=== PATIENT | female | born 1960 | race Caucasian/White ===

== ENCOUNTER 2021-06-15 17:39 | Inpatient (IN) | payer OTHER ==
[~2021-06-15] VITALS: Ht 160 cm; Wt 138.9 kg
[2021-06-15 18:56] LABS: BASO # 0.1 x10^3/uL (0.0-0.2); BASO % 1 % (0-3); CALCIUM 8.8 mg/dL (8.5-10.1); CREATININE 1.5 mg/dL (0.6-1.0); EOS % 0 % (0-3); GFR 35.4; HEMATOCRIT 37.6 % (36.0-47.0); HEMOGLOBIN 11.8 g/dL (12.0-15.5); LYMPH # 0.2 x10^3/uL (1.0-4.8); LYMPH % 1 % (24-48); MEAN CORPUSCULAR HEMOGLOBIN 29 pg (25-35); MEAN CORPUSCULAR HGB CONC 32 g/dL (31-37); MEAN CORPUSCULAR VOLUME 92 fL (79-100); MONO # 0.4 x10^3/uL (0.0-1.1); MONO % 2 % (0-9); NEUT # 16.5 x10^3uL (1.8-7.7); NEUT % 96 % (31-73); PLATELET COUNT 305 x10^3/uL (140-400); RED BLOOD COUNT 4.11 x10^6/uL (3.50-5.40); RED CELL DISTRIBUTION WIDTH 20.5 % (11.5-14.5); WHITE BLOOD COUNT 17.2 x10^3/uL (4.0-11.0)
[2021-06-15 19:11] LABS: ALBUMIN 2.1 g/dL (3.4-5.0); ALBUMIN/GLOBULIN RATIO 0.5 (1.0-1.7); C REACTIVE PROTEIN 32.6 mg/L (0-3.3); PHOSPHORUS 3.6 mg/dL (2.6-4.7); TOTAL BILIRUBIN 1.3 mg/dL (0.2-1.0); TOTAL PROTEIN 6.7 g/dL (6.4-8.2)
--- NOTE | 2021-06-15 19:23 | RAD ---
Exam: Right and left tibia and fibula 2 views INDICATION: Infection TECHNIQUE: Right left tibia and fibula 2 views Comparisons: None FINDINGS: Right: Bone mineralization is normal. No acute or healed fractures. Joint spaces are well-maintained. Diffus e soft tissue edema and reticulation noted. Left: Bone mineralization is normal. No acute or healed fractures. Joint spaces are well-maintained. Diffus e soft tissue edema and reticulation noted. IMPRESSION: Diffuse soft tissue abnormality without underlying osseous abnormality identified. Electronically signed by: Anand Benjamin MD (06/15/2021 7:20 PM) BENNIE
--- NOTE | 2021-06-15 19:43 | PHYS DOC ---
General Adult EDM: Chief Complaint: CELLULITIS HPI: HPI: Patient is a 60-year-old female coming in from home for maggots on both of her legs. Patient states she first noticed 1 on her leg 3 days ago and is states they have had some fruit flies flying around her house. Has noticed more over the recent days. Not will see her primary care provider because they are out of town. Patient states she has chills but she has chills frequently and is always cold. Denies any known fevers. Patient has a history of lymphedema but has not been getting wound care, has been caring for her wounds at home. Has noticed some small areas of ulceration recently with some weeping. Review of Systems: Review of Systems: All other systems within normal limits except for as noted in the HPI Current Medications: Current Meds: Current Medications Medications (Trade) Dose Ordered Sig/Carley Start Time Stop Time Status Last Admin Dose Admin Acetaminophen (Tylenol) 650 mg PRN Q4HRS PRN 06/15/21 19:45 06/16/21 19:44 UNV Fentanyl Citrate (Fentanyl 2ml Vial) 50 mcg PRN Q1HR PRN 06/15/21 19:45 06/16/21 19:44 UNV Ondansetron HCl (Zofran) 4 mg PRN Q4HRS PRN 06/15/21 19:45 06/16/21 19:44 UNV Sodium Chloride 1,000 ml @ 75 mls/hr [id number] 06/15/21 19:45 06/16/21 19:44 UNV Vancomycin HCl 2 gm/Sodium Chloride 500 ml @ 250 mls/hr 1X ONCE 06/15/21 19:45 06/15/21 21:44 Allergies: Allergies: Allergies Coded Allergies Type Severity Reaction Last Updated Verified Penicillins Allergy Unknown 06/15/21 Yes alprazolam Allergy Unknown 06/15/21 Yes ciprofloxacin Allergy Unknown 06/15/21 Yes codeine Allergy Unknown 06/15/21 Yes erythromycin base Allergy Unknown 06/15/21 Yes indomethacin Allergy Unknown 06/15/21 Yes morphine Allergy Unknown 06/15/21 Yes shellfish derived Allergy Unknown 06/15/21 Yes sulfamethoxazole Allergy Unknown 06/15/21 Yes tetracycline Allergy Unknown 06/15/21 Yes ticagrelor Allergy Unknown 06/15/21 Yes trimethoprim Allergy Unknown 06/15/21 Yes Physical Exam: PE: Constitutional: Well developed, well nourished, no acute distress, non-toxic ap pearance. [] HENT: Normocephalic, atraumatic, bilateral external ears normal, nose normal. [] Eyes: PERRLA, conjunctiva normal, no discharge. [] Neck: No rigidity, supple, no stridor. [] Cardiovascular: Regular rate and rhythm, brisk cap refill [] Lungs & Thorax: Non labored symmetric respirations, no tachypnea or respiratory distress [] Abdomen: Soft, nondistended. Skin: Cobblestoning to bilateral lower extremities with significant edema, small areas of ulceration that do not past dermis. Maggots had been removed prior to my examination. But per nurse were mostly on the lower legs and a couple on the thighs. Erythema of warmth of dorsums of both feet. Back: Unremarkable Extremities: No deformities, range of motion grossly intact, no lower extremity edema [] Neurologic: Alert and oriented X 3, no focal deficits noted. [] Psychologic: Affect normal, judgement normal, mood normal. [] Current Patient Data: Labs: Laboratory Tests Test 06/15/21 18:07 06/15/21 18:25 SARS-CoV-2 Antigen (Rapid) Negative (NEGATIVE) White Blood Count 17.2 x10^3/uL (4.0-11.0) H Red Blood Count 4.11 x10^6/uL (3.50-5.40) Hemoglobin 11.8 g/dL (12.0-15.5) L Hematocrit 37.6 % (36.0-47.0) Mean Corpuscular Volume 92 fL (79-100) Mean Corpuscular Hemoglobin 29 pg (25-35) Mean Corpuscular Hemoglobin Concent 32 g/dL (31-37) Red Cell Distribution Width 20.5 % (11.5-14.5) H Platelet Count 305 x10^3/uL (140-400) Neutrophils (%) (Auto) 96 % (31-73) H Lymphocytes (%) (Auto) 1 % (24-48) L Monocytes (%) (Auto) 2 % (0-9) Eosinophils (%) (Auto) 0 % (0-3) Basophils (%) (Auto) 1 % (0-3) Neutrophils # (Auto) 16.5 x10^3uL (1.8-7.7) H Lymphocytes # (Auto) 0.2 x10^3/uL (1.0-4.8) L Monocytes # (Auto) 0.4 x10^3/uL (0.0-1.1) Eosinophils # (Auto) 0.0 x10^3/uL (0.0-0.7) Basophils # (Auto) 0.1 x10^3/uL (0.0-0.2) Platelet Estimate Pending Prothrombin Time 11.0 SEC (9.4-11.4) Prothrombin Time INR 1.1 (0.9-1.1) Sodium Level 135 mmol/L (136-145) L Potassium Level 4.0 mmol/L (3.5-5.1) Chloride Level 98 mmol/L (98-107) Carbon Dioxide Level 25 mmol/L (21-32) Anion Gap 12 (6-14) Blood Urea Nitrogen 32 mg/dL (7-20) H Creatinine 1.5 mg/dL (0.6-1.0) H Estimated GFR (Cockcroft-Gault) 35.4 BUN/Creatinine Ratio 21 (6-20) H Glucose Level 208 mg/dL (70-99) H Lactic Acid Level 2.4 mmol/L (0.4-2.0) H Calcium Level 8.8 mg/dL (8.5-10.1) Phosphorus Level 3.6 mg/dL (2.6-4.7) Magnesium Level 2.0 mg/dL (1.8-2.4) Total Bilirubin 1.3 mg/dL (0.2-1.0) H Aspartate Amino Transferase (AST) 21 U/L (15-37) Alanine Aminotransferase (ALT) 25 U/L (14-59) Alkaline Phosphatase 114 U/L (46-116) Creatine Kinase 62 U/L (26-192) C-Reactive Protein 32.6 mg/L (0-3.3) H TZ-Kmf-R-Type Natriuretic Peptide 30951 pg/mL (0-124) H Total Protein 6.7 g/dL (6.4-8.2) Albumin 2.1 g/dL (3.4-5.0) L Albumin/Globulin Ratio 0.5 (1.0-1.7) L Vital Signs: Vital Signs Date Time Temp Pulse Resp B/P (MAP) Pulse Ox O2 Delivery O2 Flow Rate FiO2 06/15/21 17:39 99.4 125 24 125/71 (89) 97 Room Air EKG: EKG: [] Radiology/Procedures: Radiology/Procedures: [address] [id number] IMAGING REPORT Signed PATIENT: JOSE A PRATER: [id number] : 1960 LOCATION: ER AGE: 60 SEX: F EXAM STATUS: REG ER ORD. PHYSICIAN: EARNEST MOURA MD REASON: infection PROCEDURE: TIBIA FIBULA BILAT Exam: Right and left tibia and fibula 2 views INDICATION: Infection TECHNIQUE: Right left tibia and fibula 2 views Comparisons: None FINDINGS: Right: Bone mineralization is normal. No acute or healed fractures. Joint spaces are well-maintained. Diffuse soft tissue edema and reticulation noted. Left: Bone mineralization is normal. No acute or healed fractures. Joint spaces are well-maintained. Diffuse soft tissue edema and reticulation noted. IMPRESSION: Diffuse soft tissue abnormality without underlying osseous abnormality identified. Electronically signed by: Anand Reyes MD (06/15/2021 7:20 PM) [facility] DICTATED AND SIGNED BY: ANAND REYES MD DATE: 06/15/211914 CC: EARNEST MOURA MD; DARY BATISTA MD ~MTH0 0 [] Heart Score: C/O Chest Pain: No Risk Factors: Risk Factors: DM, Current or recent (<one month) smoker, HTN, HLP, family history of CAD, obesity. Risk Scores: Score 0 - 3: 2.5% MACE over next 6 weeks - Discharge Home Score 4 - 6: 20.3% MACE over next 6 weeks - Admit for Clinical Observation Score 7 - 10: 72.7% MACE over next 6 weeks - Early Invasive Strategies Course & Med Decision Making: Course & Med Decision Making No free air seen on x-rays, patient has a white count, mildly tachycardic but with a stable blood pressure. Patient had a slightly elevated lactate of 2.4. Patient's BNP is 20,000, will hydrate gently and not aggressively fluid bolus. Discussed with the hospitalist, Dr. Garvey, and discussed patient's medication a llergy list. We will treat with vancomycin as is likely staph infection Efraín Disclaimer: Efraín Disclaimer: This electronic medical record was generated, in whole or in part, using a voice recognition dictation system. Departure Departure: Impression: Primary Impression: Acquired lymphedema of lower extremity Additional Impression: Cellulitis Disposition: ADMITTED INPATIENT Admitting Physician: Calos Garvey Condition: GUARDED Referrals: DARY BATISTA MD (PCP) EARNEST MOURA MD Jun 15, 2021 19:43
[2021-06-15] MEDS ORDERED: VANCOMYCIN 1 GM VIAL. ONE (19:44)
[2021-06-15] MEDS ORDERED: ONDANSETRON PF 4 MG/2 ML VIAL. IVP PRN (19:45)
[2021-06-15] MEDS ORDERED: VANCOMYCIN 2 GM in IV NORMAL SALINE 500ML 500 ML IV ONE (19:45)
[2021-06-15] MEDS: ACETAMINOPHEN 325 MG TABLET PO PRN (20:01)
[2021-06-15] MEDS: IV NORMAL SALINE 1,000ML 1,000 ML IV SCH (20:01)
[2021-06-15 20:06] LABS: % BANDS 5 % (0-9); % LYMPHS 1 % (24-48); % MONOS 4 % (0-10); % SEGS 90 % (35-66); PLT ESTIMATE ADEQUATE (ADEQUATE)
[2021-06-15 20:10] LABS: ANISOCYTOSIS SLIGHT
[2021-06-16 04:36] VITALS: BP 127/55
[2021-06-16] MEDS ORDERED: MAGN200T7 PO (05:00)
[2021-06-16] MEDS ORDERED: BUME1TAB3 PO (05:00)
[2021-06-16] MEDS ORDERED: OXYC5TAB4 PO (05:00)
[2021-06-16] MEDS ORDERED: CRESTOR5 MG PO (05:00)
[2021-06-16] MEDS ORDERED: PANT40TA6 PO (05:00)
[2021-06-16] MEDS ORDERED: INSU100V31 SQ (05:00)
[2021-06-16] MEDS ORDERED: IRON1CAP14 PO (05:00)
[2021-06-16] MEDS ORDERED: METO-239 PO (05:00)
[2021-06-16] MEDS ORDERED: CHOL500021 PO (05:00)
[2021-06-16] MEDS ORDERED: POTA20TA4 PO (05:00)
[2021-06-16] MEDS ORDERED: ASPI-889 PO (05:00)
[2021-06-16] MEDS ORDERED: CLOP75TA PO (05:00)
[2021-06-16] MEDS ORDERED: ALLO300T PO (05:00)
[2021-06-16 06:03] LABS: BASO % 0 % (0-3); EOS % 0 % (0-3); HEMATOCRIT 33.8 % (36.0-47.0); HEMOGLOBIN 10.5 g/dL (12.0-15.5); LYMPH # 0.4 x10^3/uL (1.0-4.8); LYMPH % 3 % (24-48); MEAN CORPUSCULAR HEMOGLOBIN 28 pg (25-35); MEAN CORPUSCULAR HGB CONC 31 g/dL (31-37); MEAN CORPUSCULAR VOLUME 91 fL (79-100); MONO # 0.5 x10^3/uL (0.0-1.1); MONO % 4 % (0-9); NEUT # 12.7 x10^3uL (1.8-7.7); NEUT % 93 % (31-73); PLATELET COUNT 251 x10^3/uL (140-400); RED CELL DISTRIBUTION WIDTH 20.9 % (11.5-14.5); WHITE BLOOD COUNT 13.7 x10^3/uL (4.0-11.0)
[2021-06-16 06:17] LABS: CALCIUM 8.4 mg/dL (8.5-10.1); CREATININE 1.4 mg/dL (0.6-1.0); GFR 38.4; POTASSIUM 3.6 mmol/L (3.5-5.1)
--- NOTE | 2021-06-16 06:24 | NUR ---
The patient, LEBRON PRATER, 60 y/o, F admitted by JACINTA ARAUJO MD, was given written information regarding hospital policies, unit procedures and contact persons. Valuables were checked and noted. Vital signs were obtained. PT presents with leg pain and maggots coming out of leg wounds. PT states her first noticed maggots on Tuesday. PT has chronic neck pain. PT stated she uses more than she is supposed to use of her oxycodone. PT explained policy of home medications brought in needing to be placed in Pharmacy. PT does not wish to comply with this. PT stated earlier in conversation that she had insulin and oxycodone in her purse. PT is nonambulatory at this time. Purse placed away from PT on table. Explained to PT reasoning behind placing purse away as so she could not take those medications while in hospital. PT grumbled but agreed. Reviewed with PT her PMH, PSH, SH, FH and medications. Photos taken. PT not very cooperative with rolling. PT is an ex-smoker and drinks socially a few times a year. PT has 2 adopted daughters. PT had previously been seeing [facility] for legs but stated, "they were all bitches so I stopped going". PT states she had a nurse coming to their house 3 times a week but condition deemed "noncurable" and nurse was disallowed by insurance. PT states her takes care of her legs now. PT sleeps in a recliner but claims no respiratory issues. PT with obvious hygiene neglect. PT states she does not need to use any assistive devices stating, "I walk all over the house".
[2021-06-16 07:15] VITALS: BP 159/60
[2021-06-16] MEDS: IV NORMAL SALINE 1,000ML 1,000 ML IV SCH ×2 (09:05→18:09)
[2021-06-16] MEDS ORDERED: BUMETANIDE 1 MG TABLET PO SCH (11:00)
[2021-06-16] MEDS: CHOLECALCIFEROL (VITAMIN D3) 50,000 UNIT CAPSULE PO SCH (11:00)
[2021-06-16] MEDS ORDERED: oxyCODONE IR 5 MG TABLET PO PRN (11:15)
[2021-06-16] MEDS: CLOPIDOGREL BISULFATE 75 MG TABLET PO SCH (11:23)
[2021-06-16] MEDS: METOPROLOL SUCC 24HR ER 25 MG TAB.ER.24H. PO SCH (11:23)
[2021-06-16] MEDS: oxyCODONE IR 5 MG TABLET PO PRN ×3 (11:23→20:52)
[2021-06-16] MEDS: ASPIRIN ENTERIC COATED 81 MG TABLET.DR. PO SCH (11:23)
[2021-06-16] MEDS: PANTOPRAZOLE 40 MG TABLET. PO SCH ×2 (11:24→20:52)
[2021-06-16] MEDS: ALLOPURINOL 300 MG TABLET. PO SCH (11:24)
[2021-06-16] MEDS: POTASSIUM CHLORIDE 20 MEQ TABLET.ER. PO SCH (11:24)
[2021-06-16 11:39] VITALS: BP 149/57
[2021-06-16] MEDS: INSULIN LISPRO 300 UNITS/3 ML VIAL. SQ SCH ×2 (12:27→17:02)
[2021-06-16] MEDS ORDERED: VANCOMYCIN PER PHARMACY MC PRN (13:30)
[2021-06-16] MEDS: BUMETANIDE 1 MG/4 ML VIAL. IVP SCH (13:37)
[2021-06-16 13:49] LABS: URIC ACID 5.4 mg/dL (2.6-6.0)
--- NOTE | 2021-06-16 13:49 | NUR ---
Pharmacy Vancomycin Dosing Note S:Consulted to monitor and dose vancomycin started 06/15/21. O:LEBRON PRATER is a 60 year old F with Cellulitis, . Height: 5 feet, 3 inches Weight: 138.9 kg [place] Body Weight: 52.40 Adjusted Body Weight: 87.00 Dosing Weight: Other Antibiotics: LABS: Last BUN: 33 Last Creatinine: 1.4 Creatinine Clearance: Last WBC: 13.7 Last Procalcitonin: Tmax (past 24 hours): Microbiology: I/O: Drug Levels: Last level: on at Last dose given 06/15/21 at 2000 Vancomycin Dosing: Loading Dose: 2000 mg x1 Dosing Weight: Target Trough: 10-20 A: Based on: P: 1. Begin Vancomycin 2000 mg IV q24h 2. Follow up Trough level on 06/17/21 at 2030 3. Pharmacy will continue to monitor, follow and adjust therapy as needed. MISTY ENGLISH RP, 06/16/21 [id number]
[2021-06-16] MEDS ORDERED: VANCOMYCIN 2 GM in IV NORMAL SALINE 500ML 500 ML IV ONE (14:00)
--- NOTE | 2021-06-16 14:18 | RAD ---
XR CHEST 1V CLINICAL INDICATIONS: Shortness of breath COMPARISON: None available. Findings: Bilateral interstitial lung infiltrates or bronchitis is seen which may be acute or chronic in nature. No lung consolidation or pleural effusion or pneumothorax is evident. The heart size is e nlarged. A sternotomy is evident. Surgical clips are seen in the left hilar region. Mediastinum is un remarkable. IMPRESSION: Bilateral interstitial infiltrates or bronchitis which may be acute or chronic in nature. No lung consolidation. Cardiomegaly. Electronically signed by: Emmanuel Nguyen MD (06/16/2021 2:15 PM) [id number]
[2021-06-16 15:39] VITALS: BP 155/63
--- NOTE | 2021-06-16 17:15 | CARD ---
MR#: [id number] Date of Study: 06/16/2021 Ordering Physician: POWER VELA, Referring Physician: POWER VELA, Tech: Brenda Goff, [facility] APPROVED REPORT EXAM: Two-dimensional and M-mode echocardiogram with Doppler and color Doppler. Other Information Quality : AverageHR: 87bpm Technically limited study due to Obesity INDICATION Congestive Heart Failure Surgery/Intervention CABG: Date: 2003 Site: [place] RISK FACTORS Hypertension Hyperlipidemia Diabetes 2D DIMENSIONS IVSd1.0 (0.7-1.1cm)Aortic Root(2D)3.1 (2.0-3.7cm) LVDd5.1 (3.9-5.9cm)LVOT Diameter2.0 (1.8-2.4cm) PWd0.8 (0.7-1.1cm)LVDs3.1 (2.5-4.0cm) FS (%) 38.5 %SV84.8 ml LVEF(%)68.5 (>50%) Aortic Valve AoV Peak Jeremiah.164.5cm/sAoV VTI34.0cm AO Peak GR.10.8mmHgLVOT Peak Jeremiah.104.8cm/s LVOT VTI 19.14cmAO Mean GR.7mmHg OMAYRA (VMAX)1.74tb1YQF (VTI)1.75cm2 Mitral Valve MV E Fuelfwvg257.8cm/sMV E Peak Gr.88mmHg MV DECEL TRGQ873luES A Sobkfrsl239.1cm/s MV E Mean Gr.5mmHgE/A Ratio1.6 Pulmonary Valve PV Peak Ywvjhaby47.1cm/sPV Peak Grad.3mmHg Tricuspid Valve TR P. Mqxsyqus731sy/sRAP EHYXDRTI0waUn TR Peak Gr.82scVeJVSB98teDx LEFT VENTRICLE The left ventricle is normal size. There is borderline concentric left ventricular hypertrophy. The l eft ventricle systolic function normal. The ejection fraction is estimated at 55%. Septal abnormal se ptal motion probably secondary to postoperative state. Tissue Doppler imaging reveals moderate left v entricular diastolic dysfunction. RIGHT VENTRICLE The right ventricle is mildly dilated. The right ventricle is borderline hypertrophied. The right marifer tricular systolic function is normal. ATRIA The left atrium is borderline dilated. The right atrium is borderline dilated. The interatrial septum is intact with no evidence for an atrial septal defect or patent foramen ovale as noted on 2-D or Do ppler imaging. AORTIC VALVE The aortic valve is thickened but opens well. Doppler and Color Flow revealed trace aortic regurgitat ion. There is no significant aortic valvular stenosis. Calculated aortic valve area is 1.9 cm2 with m aximum pressure gradient of 12 mmHg and mean pressure gradient of 6 mmHg. MITRAL VALVE The mitral valve is normal in structure and function. There is no evidence of mitral valve prolapse. There is no mitral valve stenosis. Doppler and Color-flow revealed trace mitral regurgitation. TRICUSPID VALVE The tricuspid valve is normal in structure and function. Doppler and Color Flow revealed mild tricusp id regurgitation with an estimated PAP of 49 mmHg. There is moderate pulmonary hypertension. There is no tricuspid valve stenosis. PULMONIC VALVE The pulmonic valve is borderline thickened. Doppler and Color Flow revealed moderate to severe pulmon ic valvular regurgitation. There is no pulmonic valvular stenosis. GREAT VESSELS The aortic root is normal in size. The ascending aorta is normal in size. The IVC is dilated. PERICARDIAL EFFUSION There is no evidence of significant pericardial effusion. Critical Notification Critical Value: No <Conclusion> The left ventricle systolic function normal. The ejection fraction is estimated at 55%. Mild tricuspid regurgitation with an estimated PAP of 49 mmHg. There is no evidence of significant pericardial effusion. Signed by : Karsten Blanco, Electronically Approved : 06/16/2021 17:15:05
[2021-06-16] MEDS: ACETAMINOPHEN 325 MG TABLET PO PRN ×2 (18:36→23:33)
[2021-06-16 19:00] VITALS: BP 153/77
[2021-06-16] MEDS: MAGNESIUM OXIDE 400 MG TABLET PO SCH (20:51)
[2021-06-16] MEDS: MULTIVITAMIN with MINERAL TABLET. PO SCH (20:51)
[2021-06-16] MEDS: ATORVASTATIN CALCIUM 20 MG TABLET PO SCH (20:51)
[2021-06-16] MEDS: CLOBETASOL EMOLLIENT 0.05% TOPICAL CREAM 15GM TUBE. TP SCH (20:52)
[2021-06-16] MEDS: VANCOMYCIN 2 GM in IV NORMAL SALINE 500ML 500 ML IV SCH (20:57)
[2021-06-16 23:00] VITALS: BP 132/71
[2021-06-17] MEDS: oxyCODONE IR 5 MG TABLET PO PRN ×6 (00:46→22:04)
[2021-06-17] MEDS: ACETAMINOPHEN 325 MG TABLET PO PRN ×5 (03:31→22:04)
[2021-06-17 05:44] VITALS: BP 149/66
--- NOTE | 2021-06-17 06:20 | HP ---
ADMIT DATE: 06/15/2021 HISTORY OF PRESENT ILLNESS: This 60-year-old female came in from home. The patient notes that she has been having problems with cellulitis in her legs, very painful, very encrusted, possible maggots in her leg itself. The patient thought that she had some fruit flies flying around the house and they have noticed that they placed their larvae in her leg, although that is to be determined. The patient notes that she has been having some chills and notes that she has been having low-grade temperature as well. She has chronic history of lymphedema. She has been getting wound care and of course she has multiple areas of ulcerations as well as infection to her lower extremities especially. PAST MEDICAL HISTORY: Positive for multiple medical problems including morbid obesity. She had coronary artery disease, three bypass surgeries, cardiac catheterization, anticoagulant therapy, hypertension, obesity, hysterectomy, uterine cancer, renal disease, she had been on dialysis in the past, musculoskeletal problems, gout, diabetes, depression, anxiety, alcohol use, smoking ____. FAMILY HISTORY: Positive for lymphadenitis in brother and mother, skin cancer in brother and sister, non-Hodgkin's lymphoma in the mother, strokes in the brother and father, CABG in the father, of family members as noted. ALLERGIES: PENICILLIN, XANAX, CIPRO, CODEINE, ERYTHROMYCIN, INDOMETHACIN, MORPHINE, SHELLFISH, SULFA DRUGS, TETRACYCLINE, TRIMETHOPRIM. SOCIAL HISTORY: The patient has about a [id number]-[id number] history of smoking, although has quit. Has used alcohol in the past, although has not had any recently. The patient is a FULL CODE. REVIEW OF SYSTEMS: The patient has some diffuse headaches from time to time, but denies any visual changes. Has some mild nausea, but no vomiting. Denies chest pain. Mild shortness of breath. Denies any problem with her bowels or bladder. Does have some mild incontinence. Has chronic pain in her legs from her lymphedema and marked crusting of the skin down there in the lower extremities. PHYSICAL EXAMINATION: GENERAL: This is a pleasant white female. The patient is morbidly obese female. VITAL SIGNS: Blood pressure approximately 125/70, respiratory rate 24, pulse upwards of 125, temperature of 99.4, room air at 95. HEENT: Head was atraumatic, normocephalic. Eyes, PERRL. Mouth and throat: Poor dentition. NECK: Supple. LUNGS: Diminished, but clear. CARDIOVASCULAR: Regular sinus rhythm, tachycardic. ABDOMEN: Markedly protuberant, soft, diffuse tenderness. EXTREMITIES: Most of the problem lies down in the lower extremities which show marked thickening, scaling and plaquing of the lower extremities with some ulcerations noted. No obvious maggots were noted. Pulses were noted distally at 1/4. The upper thighs were also markedly swollen, although there was no plaquing there. NEUROLOGIC: The patient was alert and oriented x3. LABORATORY DATA: The patient's white count was 17,000, hemoglobin 11.8 and hematocrit 37. The patient's chemistries showed her elevated blood sugars, also lactic acid of 2.4, BUN and creatinine of 32 and 1.5. C-reactive protein is 32.6 and a BNP of 21,000. Total protein 6.7, albumin low at 2.1. Blood sugars about 200 average. ASSESSMENT AND PLAN: Sepsis, cellulitis to the lower legs, chronic lymphedema, marked plaquing and thickening of the skin to the lower extremities, type 2 diabetes, morbid obesity, severe protein malnutrition, anemia of chronic disease. The patient otherwise will be admitted. Place PICC line, IV vancomycin and Levaquin. We will attempt to get a urine specimen on her. Wound care clinic. Echocardiography because of the elevated BNP. Make further adjustments on her medications as indicated. We will see what wound clinic says concerning these impressive lower extremities with severe plaquing, blistering, ulceration noted. MERLE/DAPHNE/EZEKIEL DR: MERLE/izabela TID: [id number]
--- NOTE | 2021-06-17 08:30 | NUR ---
Wound/Ostomy Care Wound Type/Assessment: Wound Care consult for BLE cellulitis and blister. Pt has untreated lymphedem to BLE with dry flaky skin present. Cleansed legs with lotion soap and applied lotion liberally. Small open blisters noted to left anterior lower leg with slough that was easily removed with CTA revealing a pale pink wound bed. Treatment Recommendations/Plan: Apply Ammonium lactate lotion BID Education provided: WC POC, PU prevention Offloading surface/device: na Recommended Referrals/Tests: recommend lymphedema therapy with HH upon discharge Discharge Recommendations for dressings: continue with ammonium lactate lotion BID
[2021-06-17] MEDS: CHOLECALCIFEROL (VITAMIN D3) 50,000 UNIT CAPSULE PO SCH (08:43)
[2021-06-17] MEDS: ASPIRIN ENTERIC COATED 81 MG TABLET.DR. PO SCH (08:44)
[2021-06-17] MEDS: BUMETANIDE 1 MG/4 ML VIAL. IVP SCH ×2 (08:44→14:44)
[2021-06-17] MEDS: POTASSIUM CHLORIDE 20 MEQ TABLET.ER. PO SCH (08:44)
[2021-06-17] MEDS: ALLOPURINOL 300 MG TABLET. PO SCH (08:44)
[2021-06-17] MEDS: METOPROLOL SUCC 24HR ER 25 MG TAB.ER.24H. PO SCH (08:44)
[2021-06-17] MEDS: CLOPIDOGREL BISULFATE 75 MG TABLET PO SCH (08:44)
[2021-06-17] MEDS: PANTOPRAZOLE 40 MG TABLET. PO SCH ×2 (08:45→21:15)
[2021-06-17] MEDS: CLOBETASOL EMOLLIENT 0.05% TOPICAL CREAM 15GM TUBE. TP SCH ×2 (08:45→21:15)
[2021-06-17] MEDS: INSULIN LISPRO 300 UNITS/3 ML VIAL. SQ SCH ×3 (08:47→17:00)
[2021-06-17 11:00] VITALS: BP 137/78
[2021-06-17 15:00] VITALS: BP 149/74
[2021-06-17 21:00] VITALS: BP 97/41
[2021-06-17] MEDS: VANCOMYCIN 2 GM in IV NORMAL SALINE 500ML 500 ML IV SCH (21:00)
[2021-06-17] MEDS: MAGNESIUM OXIDE 400 MG TABLET PO SCH (21:15)
[2021-06-17] MEDS: ATORVASTATIN CALCIUM 20 MG TABLET PO SCH (21:15)
[2021-06-17] MEDS: MULTIVITAMIN with MINERAL TABLET. PO SCH (21:15)
[2021-06-17 21:16] LABS: VANC TR 25.7 mcg/mL (10.0-20.0)
--- NOTE | 2021-06-17 22:31 | NUR ---
Pt's Vanco trough came back high and the pharmacist told this nurse to hold the 2100 dose.
[2021-06-18] MEDS: oxyCODONE IR 5 MG TABLET PO PRN ×7 (00:49→20:48)
--- NOTE | 2021-06-18 02:26 | PN ---
SUBJECTIVE: A 60-year-old female, in with cellulitis to her legs with massive lymphedema, of course. The patient was admitted for IV antibiotic therapy as her white count was over 17,000 and the patient is a diabetic and she had marked swelling to her legs as well as an elevated lactic acid of 2.4. BNP was also elevated to over 20,000. The patient's sodium was 135 and 4, but other than that, the patient had severe protein malnutrition. The patient says she is feeling better. Her legs do look improved with the IV antibiotic therapy, diuresis and foot SCDs. OBJECTIVE: VITAL SIGNS: Blood pressure 149/60, respiratory rate 18, pulse 90, afebrile, 2 liters at 97. GENERAL: The patient is alert and oriented. LUNGS: Diminished throughout, poor movement of air, but clear. CARDIOVASCULAR: Regular sinus rhythm. ABDOMEN: Soft, markedly protuberant. EXTREMITIES: Without clubbing, however, with marked swelling to the legs and severe plaquing to the lower legs and to the sides of the thigh, but these are markedly improved and the patient has a no doubt chronic lymphedema. Pulses noted distally. NEUROLOGIC: As noted. LABS: As noted. IMPRESSION: Sepsis, cellulitis of the legs, chronic lymphedema with secondary changes to the skin, plaque formation, severe protein malnutrition, type 2 diabetes, chronic kidney disease stage IIIA, chronic congestive heart failure. PLAN: Continue to give IV antibiotic therapy and/or SCDs and hopefully ready for discharge in the a.m. for outpatient therapy via wound clinic and the like. MERLE/EKAdam/AMBER DR: MERLE/izabela TID: [id number]
[2021-06-18 05:19] VITALS: BP 130/86
--- NOTE | 2021-06-18 06:43 | NUR ---
Pt yells, "Put the bed up like my chair!"
[2021-06-18] MEDS: CLOPIDOGREL BISULFATE 75 MG TABLET PO SCH (08:08)
[2021-06-18] MEDS: POTASSIUM CHLORIDE 20 MEQ TABLET.ER. PO SCH (08:09)
[2021-06-18] MEDS: PANTOPRAZOLE 40 MG TABLET. PO SCH ×2 (08:09→19:56)
[2021-06-18] MEDS: METOPROLOL SUCC 24HR ER 25 MG TAB.ER.24H. PO SCH (08:09)
[2021-06-18] MEDS: ASPIRIN ENTERIC COATED 81 MG TABLET.DR. PO SCH (08:09)
[2021-06-18] MEDS: ALLOPURINOL 300 MG TABLET. PO SCH (08:09)
[2021-06-18] MEDS: INSULIN LISPRO 300 UNITS/3 ML VIAL. SQ SCH ×3 (08:11→17:00)
[2021-06-18] MEDS: CLOBETASOL EMOLLIENT 0.05% TOPICAL CREAM 15GM TUBE. TP SCH ×2 (09:00→19:59)
[2021-06-18] MEDS: BUMETANIDE 1 MG/4 ML VIAL. IVP SCH ×2 (10:05→14:34)
[2021-06-18] MEDS: LACTOBACILLUS RHAMNOSUS GG 1 CAPSULE. PO SCH ×2 (10:05→19:56)
[2021-06-18] MEDS: AMMONIUM LACTATE 12% TOPICAL LOTION 226GM BOTTLE. TP SCH ×2 (11:19→19:59)
[2021-06-18] MEDS ORDERED: CLOB15CR2 TP (13:12)
[2021-06-18] MEDS ORDERED: INSU100I17 SQ (13:12)
[2021-06-18 13:25] VITALS: BP 132/78
--- NOTE | 2021-06-18 13:31 | DISCH ---
HOME HEALTH DISCHARGE/MEDS DISCHARGE INFORMATION: Discharge Date: Jun 18, 2021 Final Diagnosis: Problems Medical Problems: (1) Acquired lymphedema of lower extremity Status: Acute (2) Cellulitis Status: Acute Condition on Discharge: Stable CODE STATUS: Code Status: Full HOME HEALTH: Face to Face: I certify this patient is under my care and that I, or a nurse practitioner or physician's health information assistant working with me, had a face to face encounter that meets the physician face to face encounter requirements with this patient on June 18, 2021. Medical Condition(s): DM, HTN Longterm For: Assess Cardiopulm Status, Assess & Educate Safety, Assess/Skilled Observatio, IV Infusion Therapy, Medication Management, Pain Management Physical Therapy For: Evalulation/Treatment Homebound Status Met By: Poor coordination w/ amb., Unsteady balance w/ amb,, Extreme weakness w/ amb., Fatigue w/ amb. POST DISCHARGE ORDERS: Activity Instructions for Disc: Activity as tolerated Weight Bearing Status after Di: No restrictions DIET AFTER DISCHARGE: ADA CERTIFICATION STATEMENT: Certification Statement: Based on the above finding, I certify that this patient is confined to the home and needs intermittent group home care, physical therapy and/or speech therapy, or continues to need occupational therapy.~ This patient is under my care, and I have initiated the establishment of the plan of care.~ This patient will be followed by myself or a community physician who will periodically review the plan of care. DISCHARGE MEDICATIONS: Home Meds Reported Medications Insulin Aspart (NOVOLOG) 100 Unit/1 Ml Vial, 8-15 UNIT SQ TIDWMEALS for diabetes, EACH 06/16/21 Oxycodone Hcl (OXYCODONE HCL IMMED.RELEASE ) 5 Mg Tablet, 10 MG PO PRN Q4-6HRS PRN for PAIN, TAB 06/16/21 Metoprolol Succinate (METOPROLOL SUCCINATE ( XL )) 25 Mg Tab.er.24h, 25 MG PO DAILY for FOR HYPERTENSION, #30 TAB 0 Refills 06/16/21 Potassium Chloride (POTASSIUM CHLORIDE ) 20 Meq Tablet.er, 20 MEQ PO DAILY for SUPPLEMENT, TAB 06/16/21 Pantoprazole Sodium (PANTOPRAZOLE SODIUM) 40 Mg Tablet.dr, 40 MG PO BID for reflux, TAB 06/16/21 Magnesium Oxide (Mag-Oxide) 200 Mg Tablet, 400 MG PO HS for supplement, TAB 06/16/21 Clopidogrel Bisulfate (CLOPIDOGREL) 75 Mg Tablet, 75 MG PO DAILY for TO PREVENT BLOOD CLOTS, #30 TAB 0 Refills 06/16/21 Iron,Fum&Ps/Fa/Vit B&C#18/L.ca (FUSION PLUS CAPSULE) 1 Each Capsule, 1 CAP PO HS for supplement for 30 Days, #30 CAP 0 Refills 06/16/21 Rosuvastatin Calcium (CRESTOR) 5 Mg Tablet, 5 MG PO HS for FOR CHOLESTEROL, #30 TAB 0 Refills 06/16/21 Bumetanide (BUMETANIDE) 1 Mg Tablet, 2 MG PO DAILY for swelling, TAB 06/16/21 Aspirin (ASPIRIN EC) 81 Mg Tablet.dr, 81 MG PO DAILY for heart health, TAB 06/16/21 Allopurinol (ALLOPURINOL) 300 Mg Tablet, 300 MG PO DAILY for gout, TAB 06/16/21 Cholecalciferol (Vitamin D3) (D3-50) 50,000 Unit Capsule, 1 CAP PO WEEKLY for supplement for 28 Days, #4 CAP 0 Refills 06/16/21 POWER VELA MD Jun 18, 2021 13:31
[2021-06-18 14:02] LABS: CALCIUM 8.4 mg/dL (8.5-10.1); CREATININE 1.5 mg/dL (0.6-1.0); GFR 35.4; POTASSIUM 4.7 mmol/L (3.5-5.1)
[2021-06-18 15:53] VITALS: BP 118/76
[2021-06-18] MEDS: ATORVASTATIN CALCIUM 20 MG TABLET PO SCH (19:56)
[2021-06-18] MEDS: MAGNESIUM OXIDE 400 MG TABLET PO SCH (19:56)
[2021-06-18] MEDS: MULTIVITAMIN with MINERAL TABLET. PO SCH (19:56)
--- NOTE | 2021-06-18 21:00 | NUR ---
Order Verified Yes Consent signed Yes Previous PICC placement per patient Yes Past Medical/Surgical history and current diagnosis reviewed Yes Patient Medical /Surgical History Related to PICC line placement None Special considerations for PICC line placement None PICC placement indication intermediate antibiotic usage, Name of PICC Nurse Corinne Padgett RN
--- NOTE | 2021-06-18 21:01 | NUR ---
Procedure: Following complete explanation of the PICC procedure including the indications, risks, and potential complications, informed consent was obtained. The possibility for infection was discussed along with signs, symptoms, and prevention. All the patient's questions were answered. IV Device Protocol was used. Written and verbal patient education was provided. Hand hygiene performed. Standardized central line checklist was utilized. The patient was placed in the supine position, the right arm was prepped with chlorhexidine and patient draped with maximum sterile barrier. 1.5 mL 1% lidocaine was infiltrated into the skin to provide local anesthesia. A thorough assessment of the right upper extremity completed. Using real-time ultrasound guidance and standardized micro puncture set, the cephalic vein was punctured since the brachial and basilic both 3+ cm in depth, and a peel away sheath was placed using the modified Seldinger technique. A tip location device was used to ensure adequate catheter placement. The catheter was secured using a securement device and an antimicrobial patch was applied directly on the insertion site followed by a transparent dressing. The purple port withdrew blood and flushed without resistance. Patient tolerated the procedure without apparent complication. A single Lumen Power PICC placement successful and uncomplicated. Placement verified by EKG tip confirmation system with green p wave and mallory observed. Tip located in the low SVC per 3CG Complications: None
--- NOTE | 2021-06-18 21:29 | NUR ---
Removed saline lock with cath intact; reviewed dismissal instructions with pt, verbalized understanding, copy of signed instruction sheet given; personal belongings packaged by Tech, assisted to front entrance by wheelchair; PICC line present and intact with transparent dressing to right upper arm; dismissed to home in good condition via private auto with .
--- NOTE | 2021-06-20 15:54 | DS ---
DATE OF DISCHARGE: 06/18/2021 HOSPITAL COURSE: A 60-year-old female came in with cellulitis to her lower legs. The patient has significant venous stasis and they were infected. They were extremely painful and encrusted. Also, she felt she had maggots found in the legs themselves. As a result of this, the patient was admitted. She did have a low-grade temperature. She did have an elevated white count of over 17,000. Differential was stable. The patient was admitted for IV antibiotic therapy. She has chronic renal insufficiency and also diabetic as a risk factor as well as her morbid obesity. The patient's BNP was elevated; however, the chest x-ray did not show any obvious signs of heart failure and her lung exam done. She was COVID negative. The patient was on antibiotics for her legs. The patient was also diuresed somewhat and she will follow up with her mold sprayer on that issue, is stable and showing no signs of respiratory distress at 95% on room air. In any case, the patient made good progress. She was seen by wound care clinic. They made timely suggestions. No maggots could be found. A home health agency will be seeing the patient to work with her to help her care for her legs and her chronic venous stasis. IMPRESSION: Cellulitis to the lower legs, severe venous stasis, chronic lymphedema, morbid obesity, type 2 diabetes, chronic kidney disease 3A, elevated BNP, severe protein malnutrition. COVID negative. The patient had a PICC line placed. Continue on IV vancomycin for at least 10 days and aggressive therapy for the legs as noted above. MERLE/GIOVANNA/MO DR: MERLE/izabela TID: [id number]
== END 2021-06-18 21:27 | disposition home health service (06) | DRG 871 ==
LOC: ER 17:54 → ICU 19:35 → 1 SOUTH 06-18 04:58
PROVIDERS: ADMIT Family Medicine; ATTEND Family Medicine
PROC: 02HV33Z Insertion of Infusion Device into Superior Vena Cava, Percutaneous Approach (ICD-10-PCS; principal; 2021-06-17)
PROC: B548ZZA Ultrasonography of Superior Vena Cava, Guidance (ICD-10-PCS; 2021-06-17)
DX: A41.9 Sepsis, unspecified organism (principal); E43 Unspecified severe protein-calorie malnutrition; I13.0 Hypertensive heart and chronic kidney disease with heart failure and stage 1 through stage 4 chronic kidney disease, or unspecified chronic kidney disease; L03.115 Cellulitis of right lower limb; L03.116 Cellulitis of left lower limb; D63.8 Anemia in other chronic diseases classified elsewhere; E11.22 Type 2 diabetes mellitus with diabetic chronic kidney disease; E66.01 Morbid (severe) obesity due to excess calories; I25.10 Atherosclerotic heart disease of native coronary artery without angina pectoris; I50.9 Heart failure, unspecified; I89.0 Lymphedema, not elsewhere classified; N18.31 Chronic kidney disease, stage 3a; Z80.7 Family history of other malignant neoplasms of lymphoid, hematopoietic and related tissues; Z80.8 Family history of malignant neoplasm of other organs or systems; Z82.3 Family history of stroke; Z85.42 Personal history of malignant neoplasm of other parts of uterus; Z87.891 Personal history of nicotine dependence; Z90.710 Acquired absence of both cervix and uterus; Z99.2 Dependence on renal dialysis; F32.9 Major depressive disorder, single episode, unspecified; E66.9 Obesity, unspecified; F41.9 Anxiety disorder, unspecified; M10.9 Gout, unspecified; Z20.822 Contact with and (suspected) exposure to COVID-19
CPT/HCPCS: 36415; 71045; 80048; 80053; 80202; 82550; 82947; 83605; 83735; 83880; 84100; 84443; 84550; 85007; 85025; 85379; 85610; 86140; 87040; 87426; 93306; J1815; J2405; J3010; J3370; J3490; J7040; U0003; 73590-50; 97110; 97530; 97535; 99285-25; J7030

== ENCOUNTER → 2021-06-22 | Outpatient (CLI) | payer OTHER ==
[2021-06-18 15:53] VITALS: BP 118/76
[~2021-06-22] MED LIST: ALLO300T PO; ASPI-889 PO; BUME1TAB3 PO; CHOL500021 PO; CLOB15CR2 TP; CLOP75TA PO; CRESTOR5 MG PO; INSU100I17 SQ; INSU100V31 SQ; IRON1CAP14 PO; MAGN200T7 PO; METO-239 PO; OXYC5TAB4 PO; PANT40TA6 PO; POTA20TA4 PO
[2021-06-22 14:12] LABS: BLOOD UREA NITROGEN 40 mg/dL (7-20); GFR 56.6
== END ==
LOC: SPEC 13:25
PROVIDERS: ATTEND Family Medicine
DX: L03.115 Cellulitis of right lower limb (principal)
CPT/HCPCS: 36415; 80202; 82565; 84520

== ENCOUNTER → 2021-06-29 | Outpatient (CLI) | payer OTHER ==
[2021-06-18 15:53] VITALS: BP 118/76
[2021-06-29 14:10] LABS: BLOOD UREA NITROGEN 49 mg/dL (7-20); CREATININE 1.4 mg/dL (0.6-1.0); GFR 38.2; VANC TR 26.7 mcg/mL (10.0-20.0)
== END ==
LOC: SPEC 13:18
PROVIDERS: ATTEND Family Medicine
DX: Z45.2 Encounter for adjustment and management of vascular access device (principal)
CPT/HCPCS: 36415; 80202; 82565; 84520